=== PATIENT | female | born 1950 | race Caucasian/White ===

== ENCOUNTER 2022-03-14 09:51 | Inpatient (IN) | payer OTHER, MEDICAID ==
[2022-03-14] MEDS ORDERED: Melatonin 3 MG TAB PO PRN (18:10)
[2022-03-14] MEDS ORDERED: Ondansetron ODT 4 MG TAB PO PRN (18:10)
[2022-03-14] MEDS ORDERED: Acetaminophen 325 MG TAB PO PRN (18:10)
[2022-03-14] MEDS ORDERED: Bisacodyl 5 MG TAB PO PRN (18:13)
[2022-03-14] MEDS ORDERED: Dextrose 50% Abboject 50 ML SYRINGE SLOW IVP PRN (18:13)
[2022-03-14] MEDS ORDERED: Senokot S 8.6-50 MG TAB PO PRN (18:13)
[2022-03-14] MEDS ORDERED: Mometasone/Formoterol 200/5 60 PUFF INH SCH (18:30)
[2022-03-14] MEDS: Saccharomyces boulardii 250 MG CAP PO SCH (20:08)
[2022-03-14] MEDS: Gabapentin 300 MG CAP PO SCH (20:08)
[2022-03-14] MEDS: Colchicine 0.6 MG TAB PO SCH (20:09)
[2022-03-14] MEDS: Lantus 1000 UNITS/10 ML VIAL SC SCH (20:10)
[2022-03-14] MEDS: Famotidine 20 MG TAB PO SCH (20:10)
[2022-03-14] MEDS: Heparin 5,000 UNITS/ML VIAL SC SCH (20:10)
[2022-03-14] MEDS: Nystatin Powder 15 GM BOT TOP SCH (20:31)
[2022-03-15 06:22] LABS: ALT (SGPT) 40 U/L (8-55); AST (SGOT) 28 U/L (5-34); Albumin 3.1 g/dL (3.4-4.8); Alkaline Phosphatase 114 U/L (40-110); Anion Gap 17 mmol/L (10-20); BUN (Urea Nitrogen) 55 mg/dL (9.8-20.1); Bilirubin, Total 0.4 mg/dL (0.2-1.2); Calc. Creatinine Clearance 62 mL/min (70-130); Calcium 9.4 mg/dL (7.8-10.44); Carbon Dioxide 29 mmol/L (23-31); Chloride 100 mmol/L (98-107); Estimated GFR 37; Globulin 3.4 g/dL (2.4-3.5); Glucose 92 mg/dL (83-110); Potassium 4.8 mmol/L (3.5-5.1); Protein, Total 6.5 g/dL (5.8-8.1); Sodium 141 mmol/L (136-145)
[2022-03-15 06:41] LABS: #Basophils 0.1 thou/uL (0.0-0.2); #Eosinphils 0.2 thou/uL (0.0-0.7); #Lymphocytes 1.7 thou/uL (1.20-3.40); #Monocytes 0.5 thou/uL (0.11-0.59); #Neutrophils 8.3 thou/uL (1.40-6.50); %Eosinophils 2.1 % (0.0-10.0); %Lymphocytes 16.1 % (21.0-51.0); %Monocytes 4.2 % (0.0-10.0); %Neutrophils 76.7 % (42.0-75.0); Hemoglobin 9.5 g/dL (12.0-16.0); Mean Corpuscular HGB CONC 29.2 g/dL (32.0-36.0); Mean Corpuscular Volume 99.2 fL (78.0-98.0); Mean Platelet Volume 6.6 fL (7.4-10.4); Platelet Count 471 thou/uL (130-400); Red Blood Cell (RBC) Count 3.27 mill/uL (4.20-5.40); White Blood Cell (WBC) Count 10.8 thou/uL (4.8-10.8)
[2022-03-15] MEDS: Colchicine 0.6 MG TAB PO SCH ×2 (08:30→20:39)
[2022-03-15] MEDS: Clopidogrel Bisulfate 75 MG TAB PO SCH (08:36)
[2022-03-15] MEDS: Furosemide 20 MG TAB PO SCH (08:37)
[2022-03-15] MEDS: Gabapentin 300 MG CAP PO SCH ×2 (08:37→20:38)
[2022-03-15] MEDS: Empagliflozin 10 MG TAB PO SCH (08:37)
[2022-03-15] MEDS: Famotidine 20 MG TAB PO SCH ×2 (08:37→20:39)
[2022-03-15] MEDS: Heparin 5,000 UNITS/ML VIAL SC SCH ×3 (08:38→20:32)
[2022-03-15] MEDS: Lantus 1000 UNITS/10 ML VIAL SC SCH ×2 (08:39→20:31)
[2022-03-15] MEDS: Mometasone/Formoterol 200/5 60 PUFF INH SCH ×2 (08:40→20:35)
[2022-03-15] MEDS: Nystatin Powder 15 GM BOT TOP SCH ×2 (08:41→20:35)
[2022-03-15] MEDS: HumaLOG 300 UNITS/3 ML VIAL SC PRN ×2 (17:48→20:53)
[2022-03-15] MEDS: Saccharomyces boulardii 250 MG CAP PO SCH (20:38)
[2022-03-15] MEDS: traMADol HCl 50 MG TAB PO PRN (20:41)
[2022-03-16] MEDS: Colchicine 0.6 MG TAB PO SCH ×2 (08:20→20:46)
[2022-03-16] MEDS: Clopidogrel Bisulfate 75 MG TAB PO SCH (08:22)
[2022-03-16] MEDS: Famotidine 20 MG TAB PO SCH ×2 (08:22→20:46)
[2022-03-16] MEDS: Lisinopril 10 MG TAB PO SCH (08:22)
[2022-03-16] MEDS: Empagliflozin 10 MG TAB PO SCH (08:22)
[2022-03-16] MEDS: Furosemide 20 MG TAB PO SCH (08:22)
[2022-03-16] MEDS: Gabapentin 300 MG CAP PO SCH ×2 (08:23→20:47)
[2022-03-16] MEDS: Nystatin Powder 15 GM BOT TOP SCH ×2 (08:24→20:48)
[2022-03-16] MEDS: Mometasone/Formoterol 200/5 60 PUFF INH SCH ×2 (08:24→20:48)
[2022-03-16] MEDS: Heparin 5,000 UNITS/ML VIAL SC SCH ×3 (08:25→20:26)
[2022-03-16] MEDS: Lantus 1000 UNITS/10 ML VIAL SC SCH ×2 (08:26→20:48)
[2022-03-16] MEDS: traMADol HCl 50 MG TAB PO PRN ×2 (09:31→20:45)
[2022-03-16] MEDS: HumaLOG 300 UNITS/3 ML VIAL SC PRN (12:08)
[2022-03-16] MEDS ORDERED: Simethicone Chewable 80 MG TAB PO PRN (18:00)
[2022-03-16] MEDS: Saccharomyces boulardii 250 MG CAP PO SCH (20:46)
[2022-03-17] MEDS: Lisinopril 10 MG TAB PO SCH (09:50)
[2022-03-17] MEDS: Colchicine 0.6 MG TAB PO SCH ×2 (09:51→20:14)
[2022-03-17] MEDS: Famotidine 20 MG TAB PO SCH ×2 (09:51→20:14)
[2022-03-17] MEDS: Clopidogrel Bisulfate 75 MG TAB PO SCH (09:51)
[2022-03-17] MEDS: Furosemide 20 MG TAB PO SCH (09:52)
[2022-03-17] MEDS: Empagliflozin 10 MG TAB PO SCH (09:52)
[2022-03-17] MEDS: Lantus 1000 UNITS/10 ML VIAL SC SCH ×2 (09:53→20:16)
[2022-03-17] MEDS: Heparin 5,000 UNITS/ML VIAL SC SCH ×3 (09:53→20:09)
[2022-03-17] MEDS: Mometasone/Formoterol 200/5 60 PUFF INH SCH ×2 (09:54→20:16)
[2022-03-17] MEDS: Nystatin Powder 15 GM BOT TOP SCH ×2 (09:55→20:16)
[2022-03-17] MEDS: Gabapentin 300 MG CAP PO SCH ×2 (09:56→20:14)
[2022-03-17] MEDS: traMADol HCl 50 MG TAB PO PRN ×2 (10:02→20:13)
[2022-03-17] MEDS: HumaLOG 300 UNITS/3 ML VIAL SC PRN (12:36)
[2022-03-17] MEDS: Saccharomyces boulardii 250 MG CAP PO SCH (20:14)
[2022-03-17] MEDS: Proctozone-HC 30 GM TUBE PR PRN (20:18)
[2022-03-18] MEDS: traMADol HCl 50 MG TAB PO PRN ×3 (02:31→20:12)
[2022-03-18] MEDS: Empagliflozin 10 MG TAB PO SCH (09:42)
[2022-03-18] MEDS: Furosemide 20 MG TAB PO SCH (09:42)
[2022-03-18] MEDS: Famotidine 20 MG TAB PO SCH ×2 (09:42→20:17)
[2022-03-18] MEDS: Clopidogrel Bisulfate 75 MG TAB PO SCH (09:42)
[2022-03-18] MEDS: Lisinopril 10 MG TAB PO SCH (09:42)
[2022-03-18] MEDS: Colchicine 0.6 MG TAB PO SCH ×2 (09:43→20:17)
[2022-03-18] MEDS: Mometasone/Formoterol 200/5 60 PUFF INH SCH ×2 (09:46→20:16)
[2022-03-18] MEDS: Gabapentin 300 MG CAP PO SCH ×2 (09:46→20:17)
[2022-03-18] MEDS: Heparin 5,000 UNITS/ML VIAL SC SCH ×3 (09:46→20:08)
[2022-03-18] MEDS: Nystatin Powder 15 GM BOT TOP SCH ×2 (09:48→20:16)
[2022-03-18] MEDS: Lantus 1000 UNITS/10 ML VIAL SC SCH ×2 (09:49→20:15)
[2022-03-18] MEDS: Proctozone-HC 30 GM TUBE PR PRN (11:47)
[2022-03-18] MEDS: HumaLOG 300 UNITS/3 ML VIAL SC PRN ×2 (11:48→17:03)
[2022-03-18] MEDS: Saccharomyces boulardii 250 MG CAP PO SCH (20:17)
[2022-03-19] MEDS: Mometasone/Formoterol 200/5 60 PUFF INH SCH ×2 (07:47→20:05)
[2022-03-19] MEDS: Colchicine 0.6 MG TAB PO SCH ×2 (07:49→20:05)
[2022-03-19] MEDS: Furosemide 20 MG TAB PO SCH (07:49)
[2022-03-19] MEDS: Nystatin Powder 15 GM BOT TOP SCH ×2 (07:49→20:04)
[2022-03-19] MEDS: Famotidine 20 MG TAB PO SCH (07:50)
[2022-03-19] MEDS: Gabapentin 300 MG CAP PO SCH ×2 (07:50→20:06)
[2022-03-19] MEDS: Lisinopril 10 MG TAB PO SCH (07:52)
[2022-03-19] MEDS: Empagliflozin 10 MG TAB PO SCH (07:53)
[2022-03-19] MEDS: Heparin 5,000 UNITS/ML VIAL SC SCH ×3 (07:54→19:59)
[2022-03-19] MEDS: Lantus 1000 UNITS/10 ML VIAL SC SCH ×2 (07:54→20:03)
[2022-03-19] MEDS: Clopidogrel Bisulfate 75 MG TAB PO SCH (07:54)
[2022-03-19] MEDS: traMADol HCl 50 MG TAB PO PRN (08:05)
[2022-03-19] MEDS: Proctozone-HC 30 GM TUBE PR PRN (15:42)
[2022-03-19] MEDS: Saccharomyces boulardii 250 MG CAP PO SCH (20:05)
[2022-03-20 06:38] LABS: #Eosinphils 0.1 thou/uL (0.0-0.7); #Lymphocytes 1.5 thou/uL (1.20-3.40); #Monocytes 0.5 thou/uL (0.11-0.59); #Neutrophils 3.5 thou/uL (1.40-6.50); %Basophils 0.9 % (0.0-1.0); %Eosinophils 2.5 % (0.0-10.0); %Monocytes 7.9 % (0.0-10.0); %Neutrophils 62.8 % (42.0-75.0); Anion Gap 15 mmol/L (10-20); BUN (Urea Nitrogen) 46 mg/dL (9.8-20.1); Calc. Creatinine Clearance 62 mL/min (70-130); Calcium 9.6 mg/dL (7.8-10.44); Carbon Dioxide 28 mmol/L (23-31); Chloride 103 mmol/L (98-107); Estimated GFR 38; Glucose 60 mg/dL (83-110); Hemoglobin 8.7 g/dL (12.0-16.0); Mean Corpuscular HGB CONC 28.6 g/dL (32.0-36.0); Mean Corpuscular Hemoglobin 28.3 pg (27.0-31.0); Mean Corpuscular Volume 98.9 fL (78.0-98.0); Mean Platelet Volume 6.9 fL (7.4-10.4); Platelet Count 279 thou/uL (130-400); Potassium 4.2 mmol/L (3.5-5.1); RBC Distribution Width 15.4 % (11.5-14.5); Red Blood Cell (RBC) Count 3.08 mill/uL (4.20-5.40); Sodium 142 mmol/L (136-145); White Blood Cell (WBC) Count 5.6 thou/uL (4.8-10.8)
[2022-03-20] MEDS: Empagliflozin 10 MG TAB PO SCH (09:07)
[2022-03-20] MEDS: Lisinopril 10 MG TAB PO SCH (09:08)
[2022-03-20] MEDS: Furosemide 20 MG TAB PO SCH (09:08)
[2022-03-20] MEDS: Colchicine 0.6 MG TAB PO SCH ×2 (09:08→20:58)
[2022-03-20] MEDS: Famotidine 20 MG TAB PO SCH (09:08)
[2022-03-20] MEDS: Gabapentin 300 MG CAP PO SCH ×2 (09:09→21:00)
[2022-03-20] MEDS: Clopidogrel Bisulfate 75 MG TAB PO SCH (09:09)
[2022-03-20] MEDS: Mometasone/Formoterol 200/5 60 PUFF INH SCH ×2 (09:09→21:01)
[2022-03-20] MEDS: Nystatin Powder 15 GM BOT TOP SCH ×2 (09:09→21:03)
[2022-03-20] MEDS: Heparin 5,000 UNITS/ML VIAL SC SCH ×3 (09:09→20:56)
[2022-03-20] MEDS: traMADol HCl 50 MG TAB PO PRN (11:03)
[2022-03-20] MEDS: Proctozone-HC 30 GM TUBE PR PRN ×2 (11:43→18:18)
[2022-03-20] MEDS ORDERED: Lantus 1000 UNITS/10 ML VIAL SC SCH (12:00)
[2022-03-20] MEDS ORDERED: traMADol HCl 50 MG TAB PO PRN (17:05)
[2022-03-20] MEDS: HYDROcodone/Acetaminophen 5/325 mg Tablet PO PRN (17:37)
[2022-03-20] MEDS: Saccharomyces boulardii 250 MG CAP PO SCH (20:58)
[2022-03-20] MEDS: Lantus 1000 UNITS/10 ML VIAL SC SCH (21:02)
[2022-03-20] MEDS: Triamcinolone 0.1% Cream 15 GM TUBE TOP PRN (21:18)
[2022-03-21] MEDS: HYDROcodone/Acetaminophen 5/325 mg Tablet PO PRN ×2 (01:38→08:29)
[2022-03-21] MEDS: HumaLOG 300 UNITS/3 ML VIAL SC PRN ×2 (05:34→16:18)
[2022-03-21] MEDS: Gabapentin 300 MG CAP PO SCH ×2 (08:05→20:59)
[2022-03-21] MEDS: Clopidogrel Bisulfate 75 MG TAB PO SCH (08:07)
[2022-03-21] MEDS: Famotidine 20 MG TAB PO SCH (08:07)
[2022-03-21] MEDS: Furosemide 20 MG TAB PO SCH (08:07)
[2022-03-21] MEDS: Empagliflozin 10 MG TAB PO SCH (08:07)
[2022-03-21] MEDS: Colchicine 0.6 MG TAB PO SCH ×2 (08:08→20:58)
[2022-03-21] MEDS: Heparin 5,000 UNITS/ML VIAL SC SCH ×3 (08:08→20:59)
[2022-03-21] MEDS: Lisinopril 10 MG TAB PO SCH (08:08)
[2022-03-21] MEDS: Mometasone/Formoterol 200/5 60 PUFF INH SCH ×2 (08:17→20:56)
[2022-03-21] MEDS: Nystatin Powder 15 GM BOT TOP SCH ×2 (08:17→20:56)
[2022-03-21] MEDS: Lantus 1000 UNITS/10 ML VIAL SC SCH ×2 (08:19→21:00)
[2022-03-21] MEDS: Triamcinolone 0.1% Cream 15 GM TUBE TOP PRN (18:01)
[2022-03-21] MEDS: Saccharomyces boulardii 250 MG CAP PO SCH (20:57)
[2022-03-22] MEDS: HumaLOG 300 UNITS/3 ML VIAL SC PRN ×3 (05:46→16:31)
[2022-03-22] MEDS: HYDROcodone/Acetaminophen 5/325 mg Tablet PO PRN ×2 (07:40→20:34)
[2022-03-22] MEDS: Empagliflozin 10 MG TAB PO SCH (07:41)
[2022-03-22] MEDS: Colchicine 0.6 MG TAB PO SCH ×2 (07:42→20:35)
[2022-03-22] MEDS: Gabapentin 300 MG CAP PO SCH ×2 (07:42→20:35)
[2022-03-22] MEDS: Lisinopril 10 MG TAB PO SCH (07:43)
[2022-03-22] MEDS: Famotidine 20 MG TAB PO SCH (07:44)
[2022-03-22] MEDS: Clopidogrel Bisulfate 75 MG TAB PO SCH (07:44)
[2022-03-22] MEDS: Furosemide 20 MG TAB PO SCH (07:44)
[2022-03-22] MEDS: Triamcinolone 0.1% Cream 15 GM TUBE TOP PRN (07:44)
[2022-03-22] MEDS: Lantus 1000 UNITS/10 ML VIAL SC SCH ×2 (07:45→20:37)
[2022-03-22] MEDS: Nystatin Powder 15 GM BOT TOP SCH ×2 (07:45→20:37)
[2022-03-22] MEDS: Mometasone/Formoterol 200/5 60 PUFF INH SCH ×2 (07:45→20:36)
[2022-03-22] MEDS: Heparin 5,000 UNITS/ML VIAL SC SCH ×3 (08:07→20:38)
[2022-03-22] MEDS: Saccharomyces boulardii 250 MG CAP PO SCH (20:36)
[2022-03-23] MEDS: HYDROcodone/Acetaminophen 5/325 mg Tablet PO PRN ×2 (07:58→15:30)
[2022-03-23] MEDS: Mometasone/Formoterol 200/5 60 PUFF INH SCH ×2 (08:00→20:38)
[2022-03-23] MEDS: Nystatin Powder 15 GM BOT TOP SCH ×2 (08:01→20:43)
[2022-03-23] MEDS: Lisinopril 10 MG TAB PO SCH (08:02)
[2022-03-23] MEDS: Gabapentin 300 MG CAP PO SCH ×2 (08:02→20:39)
[2022-03-23] MEDS: Famotidine 20 MG TAB PO SCH (08:03)
[2022-03-23] MEDS: Colchicine 0.6 MG TAB PO SCH ×2 (08:03→20:39)
[2022-03-23] MEDS: Empagliflozin 10 MG TAB PO SCH (08:03)
[2022-03-23] MEDS: Furosemide 20 MG TAB PO SCH (08:03)
[2022-03-23] MEDS: Clopidogrel Bisulfate 75 MG TAB PO SCH (08:04)
[2022-03-23] MEDS: Heparin 5,000 UNITS/ML VIAL SC SCH ×3 (08:05→20:40)
[2022-03-23] MEDS: Lantus 1000 UNITS/10 ML VIAL SC SCH ×2 (08:05→20:43)
[2022-03-23] MEDS: Triamcinolone 0.1% Cream 15 GM TUBE TOP PRN (08:09)
[2022-03-23] MEDS: HumaLOG 300 UNITS/3 ML VIAL SC PRN (12:29)
[2022-03-23] MEDS: Saccharomyces boulardii 250 MG CAP PO SCH (20:39)
[2022-03-23] MEDS ORDERED: Hydrocortisone 2.5% Cream 30 GM TUBE TOP PRN ×2 (22:22→22:23)
[2022-03-24 06:19] LABS: Anion Gap 21 mmol/L (10-20); BUN (Urea Nitrogen) 39 mg/dL (9.8-20.1); Calc. Creatinine Clearance 65 mL/min (70-130); Calcium 9.3 mg/dL (7.8-10.44); Carbon Dioxide 23 mmol/L (23-31); Chloride 105 mmol/L (98-107); Estimated GFR 40; Glucose 120 mg/dL (83-110); Potassium 5.2 mmol/L (3.5-5.1); Sodium 144 mmol/L (136-145)
[2022-03-24] MEDS: Clopidogrel Bisulfate 75 MG TAB PO SCH (08:47)
[2022-03-24] MEDS: Empagliflozin 10 MG TAB PO SCH (08:47)
[2022-03-24] MEDS: Gabapentin 300 MG CAP PO SCH ×2 (08:47→20:39)
[2022-03-24] MEDS: Furosemide 20 MG TAB PO SCH (08:48)
[2022-03-24] MEDS: Famotidine 20 MG TAB PO SCH (08:48)
[2022-03-24] MEDS: Lisinopril 10 MG TAB PO SCH (08:49)
[2022-03-24] MEDS: Colchicine 0.6 MG TAB PO SCH ×2 (08:50→20:39)
[2022-03-24] MEDS: Nystatin Powder 15 GM BOT TOP SCH ×2 (08:51→20:43)
[2022-03-24] MEDS: Heparin 5,000 UNITS/ML VIAL SC SCH ×3 (08:52→20:41)
[2022-03-24] MEDS: Lantus 1000 UNITS/10 ML VIAL SC SCH ×2 (09:15→20:41)
[2022-03-24] MEDS: Mometasone/Formoterol 200/5 60 PUFF INH SCH ×2 (09:15→20:42)
[2022-03-24] MEDS: HumaLOG 300 UNITS/3 ML VIAL SC PRN ×2 (11:48→21:13)
[2022-03-24 16:12] LABS: Anion Gap 16 mmol/L (10-20); BUN (Urea Nitrogen) 39 mg/dL (9.8-20.1); Calc. Creatinine Clearance 60 mL/min (70-130); Calcium 9.3 mg/dL (7.8-10.44); Carbon Dioxide 27 mmol/L (23-31); Chloride 102 mmol/L (98-107); Estimated GFR 36; Glucose 148 mg/dL (83-110); Potassium 4.3 mmol/L (3.5-5.1); Sodium 141 mmol/L (136-145)
[2022-03-24] MEDS: Saccharomyces boulardii 250 MG CAP PO SCH (20:39)
[2022-03-25 05:30] VITALS: BMI 48.6
[2022-03-25] MEDS: Colchicine 0.6 MG TAB PO SCH ×2 (08:07→20:51)
[2022-03-25] MEDS: Lisinopril 10 MG TAB PO SCH (08:08)
[2022-03-25] MEDS: Furosemide 20 MG TAB PO SCH (08:08)
[2022-03-25] MEDS: Empagliflozin 10 MG TAB PO SCH (08:08)
[2022-03-25] MEDS: Famotidine 20 MG TAB PO SCH (08:08)
[2022-03-25] MEDS: Gabapentin 300 MG CAP PO SCH ×2 (08:08→20:51)
[2022-03-25] MEDS: Clopidogrel Bisulfate 75 MG TAB PO SCH (08:08)
[2022-03-25] MEDS: Mometasone/Formoterol 200/5 60 PUFF INH SCH ×2 (08:09→20:53)
[2022-03-25] MEDS: Lantus 1000 UNITS/10 ML VIAL SC SCH ×2 (08:09→20:52)
[2022-03-25] MEDS: Heparin 5,000 UNITS/ML VIAL SC SCH ×3 (08:09→20:52)
[2022-03-25] MEDS: Nystatin Powder 15 GM BOT TOP SCH ×2 (08:10→20:53)
[2022-03-25] MEDS: HumaLOG 300 UNITS/3 ML VIAL SC PRN ×3 (11:55→20:54)
[2022-03-25] MEDS: Saccharomyces boulardii 250 MG CAP PO SCH (20:51)
[2022-03-26] MEDS: Heparin 5,000 UNITS/ML VIAL SC SCH ×3 (08:29→21:07)
[2022-03-26] MEDS: Colchicine 0.6 MG TAB PO SCH ×2 (08:29→21:06)
[2022-03-26] MEDS: Famotidine 20 MG TAB PO SCH (08:31)
[2022-03-26] MEDS: Furosemide 20 MG TAB PO SCH (08:31)
[2022-03-26] MEDS: Lisinopril 10 MG TAB PO SCH (08:31)
[2022-03-26] MEDS: Gabapentin 300 MG CAP PO SCH ×2 (08:31→21:06)
[2022-03-26] MEDS: Clopidogrel Bisulfate 75 MG TAB PO SCH (08:31)
[2022-03-26] MEDS: Mometasone/Formoterol 200/5 60 PUFF INH SCH ×2 (08:32→21:08)
[2022-03-26] MEDS: Nystatin Powder 15 GM BOT TOP SCH ×2 (08:33→21:06)
[2022-03-26] MEDS: Lantus 1000 UNITS/10 ML VIAL SC SCH ×2 (08:33→21:07)
[2022-03-26] MEDS: Empagliflozin 10 MG TAB PO SCH (08:34)
[2022-03-26] MEDS: HYDROcodone/Acetaminophen 5/325 mg Tablet PO PRN (08:42)
[2022-03-26] MEDS: Saccharomyces boulardii 250 MG CAP PO SCH (21:06)
[2022-03-27] MEDS: Mometasone/Formoterol 200/5 60 PUFF INH SCH ×2 (09:37→21:20)
[2022-03-27] MEDS: Gabapentin 300 MG CAP PO SCH ×2 (09:38→21:19)
[2022-03-27] MEDS: Empagliflozin 10 MG TAB PO SCH (09:38)
[2022-03-27] MEDS: Lisinopril 10 MG TAB PO SCH (09:39)
[2022-03-27] MEDS: Clopidogrel Bisulfate 75 MG TAB PO SCH (09:39)
[2022-03-27] MEDS: Heparin 5,000 UNITS/ML VIAL SC SCH ×3 (09:39→21:20)
[2022-03-27] MEDS: Famotidine 20 MG TAB PO SCH (09:39)
[2022-03-27] MEDS: Furosemide 20 MG TAB PO SCH (09:39)
[2022-03-27] MEDS: Nystatin Powder 15 GM BOT TOP SCH ×2 (09:39→21:21)
[2022-03-27] MEDS: Colchicine 0.6 MG TAB PO SCH ×2 (09:40→21:18)
[2022-03-27] MEDS: Lantus 1000 UNITS/10 ML VIAL SC SCH ×2 (09:43→21:20)
[2022-03-27] MEDS: HYDROcodone/Acetaminophen 5/325 mg Tablet PO PRN (14:23)
[2022-03-27] MEDS: HumaLOG 300 UNITS/3 ML VIAL SC PRN (17:21)
[2022-03-27] MEDS: Saccharomyces boulardii 250 MG CAP PO SCH (21:19)
[2022-03-28 07:28] LABS: #Eosinphils 0.2 thou/uL (0.0-0.7); #Lymphocytes 1.2 thou/uL (1.20-3.40); #Monocytes 0.4 thou/uL (0.11-0.59); #Neutrophils 2.7 thou/uL (1.40-6.50); %Basophils 0.7 % (0.0-1.0); %Eosinophils 4.2 % (0.0-10.0); %Lymphocytes 26.3 % (21.0-51.0); %Monocytes 8.2 % (0.0-10.0); %Neutrophils 60.6 % (42.0-75.0); Anion Gap 15 mmol/L (10-20); BUN (Urea Nitrogen) 37 mg/dL (9.8-20.1); Calc. Creatinine Clearance 67 mL/min (70-130); Calcium 9.3 mg/dL (7.8-10.44); Carbon Dioxide 27 mmol/L (23-31); Chloride 107 mmol/L (98-107); Estimated GFR 41; Glucose 129 mg/dL (83-110); Hemoglobin 9.1 g/dL (12.0-16.0); Mean Corpuscular HGB CONC 28.5 g/dL (32.0-36.0); Mean Corpuscular Hemoglobin 28.6 pg (27.0-31.0); Mean Platelet Volume 7.5 fL (7.4-10.4); Platelet Count 134 thou/uL (130-400); Potassium 3.9 mmol/L (3.5-5.1); Red Blood Cell (RBC) Count 3.19 mill/uL (4.20-5.40); Sodium 145 mmol/L (136-145); White Blood Cell (WBC) Count 4.4 thou/uL (4.8-10.8)
[2022-03-28] MEDS: HYDROcodone/Acetaminophen 5/325 mg Tablet PO PRN ×3 (08:47→21:21)
[2022-03-28] MEDS: Furosemide 20 MG TAB PO SCH (08:47)
[2022-03-28] MEDS: Empagliflozin 10 MG TAB PO SCH (08:47)
[2022-03-28] MEDS: Lisinopril 10 MG TAB PO SCH (08:47)
[2022-03-28] MEDS: Gabapentin 300 MG CAP PO SCH ×2 (08:48→21:23)
[2022-03-28] MEDS: Heparin 5,000 UNITS/ML VIAL SC SCH ×3 (08:48→21:26)
[2022-03-28] MEDS: Famotidine 20 MG TAB PO SCH (08:48)
[2022-03-28] MEDS: Clopidogrel Bisulfate 75 MG TAB PO SCH (08:48)
[2022-03-28] MEDS: Colchicine 0.6 MG TAB PO SCH ×2 (08:49→21:23)
[2022-03-28] MEDS: Mometasone/Formoterol 200/5 60 PUFF INH SCH ×2 (08:49→21:19)
[2022-03-28] MEDS: Lantus 1000 UNITS/10 ML VIAL SC SCH ×2 (08:50→21:20)
[2022-03-28] MEDS: Nystatin Powder 15 GM BOT TOP SCH ×2 (08:53→21:24)
[2022-03-28] MEDS: HumaLOG 300 UNITS/3 ML VIAL SC PRN (17:08)
[2022-03-28] MEDS: Saccharomyces boulardii 250 MG CAP PO SCH (21:22)
[2022-03-29] MEDS: Mometasone/Formoterol 200/5 60 PUFF INH SCH ×2 (08:25→20:25)
[2022-03-29] MEDS: Colchicine 0.6 MG TAB PO SCH ×2 (08:29→20:27)
[2022-03-29] MEDS: Empagliflozin 10 MG TAB PO SCH (08:30)
[2022-03-29] MEDS: Clopidogrel Bisulfate 75 MG TAB PO SCH (08:31)
[2022-03-29] MEDS: Lisinopril 10 MG TAB PO SCH (08:31)
[2022-03-29] MEDS: Gabapentin 300 MG CAP PO SCH ×2 (08:32→20:27)
[2022-03-29] MEDS: Furosemide 20 MG TAB PO SCH (08:32)
[2022-03-29] MEDS: Famotidine 20 MG TAB PO SCH (08:32)
[2022-03-29] MEDS: HYDROcodone/Acetaminophen 5/325 mg Tablet PO PRN ×2 (08:34→20:26)
[2022-03-29] MEDS: Heparin 5,000 UNITS/ML VIAL SC SCH ×3 (08:37→20:19)
[2022-03-29] MEDS: Lantus 1000 UNITS/10 ML VIAL SC SCH ×2 (08:40→20:22)
[2022-03-29] MEDS: Nystatin Powder 15 GM BOT TOP SCH ×2 (08:42→20:26)
[2022-03-29] MEDS: Saccharomyces boulardii 250 MG CAP PO SCH (20:27)
[2022-03-30 07:59] VITALS: BP 155/67; TEMP 97.6
[2022-03-30] MEDS: Colchicine 0.6 MG TAB PO SCH (08:00)
[2022-03-30] MEDS: Famotidine 20 MG TAB PO SCH (08:01)
[2022-03-30] MEDS: Gabapentin 300 MG CAP PO SCH (08:01)
[2022-03-30] MEDS: Lisinopril 10 MG TAB PO SCH (08:01)
[2022-03-30] MEDS: HYDROcodone/Acetaminophen 5/325 mg Tablet PO PRN (08:02)
[2022-03-30] MEDS: Furosemide 20 MG TAB PO SCH (08:02)
[2022-03-30] MEDS: Clopidogrel Bisulfate 75 MG TAB PO SCH (08:02)
[2022-03-30] MEDS: Empagliflozin 10 MG TAB PO SCH (08:02)
[2022-03-30] MEDS: Lantus 1000 UNITS/10 ML VIAL SC SCH (08:03)
[2022-03-30] MEDS: Mometasone/Formoterol 200/5 60 PUFF INH SCH (08:04)
[2022-03-30] MEDS: Heparin 5,000 UNITS/ML VIAL SC SCH (08:04)
[2022-03-30] MEDS: Nystatin Powder 15 GM BOT TOP SCH ×2 (08:05→10:30)
== END 2022-03-30 13:30 | disposition home health service (06) | DRG 948 ==
LOC: NAV ACUTE 13:25
PROVIDERS: ADMIT Family Medicine; ATTEND Family Medicine
DX: R53.81 Other malaise (principal); J96.11 Chronic respiratory failure with hypoxia; I50.32 Chronic diastolic (congestive) heart failure; I13.0 Hypertensive heart and chronic kidney disease with heart failure and stage 1 through stage 4 chronic kidney disease, or unspecified chronic kidney disease; J44.9 Chronic obstructive pulmonary disease, unspecified; G47.33 Obstructive sleep apnea (adult) (pediatric); E11.9 Type 2 diabetes mellitus without complications; M10.9 Gout, unspecified; B37.2 Candidiasis of skin and nail; S40.022A Contusion of left upper arm, initial encounter; G89.29 Other chronic pain; L89.152 Pressure ulcer of sacral region, stage 2; F32.A Depression, unspecified; N18.32 Chronic kidney disease, stage 3b; E87.5 Hyperkalemia; L30.9 Dermatitis, unspecified; I25.10 Atherosclerotic heart disease of native coronary artery without angina pectoris; Z99.81 Dependence on supplemental oxygen; Z90.710 Acquired absence of both cervix and uterus; Z95.5 Presence of coronary angioplasty implant and graft; Z88.6 Allergy status to analgesic agent; Z86.16 Personal history of COVID-19; I25.2 Old myocardial infarction; Z90.89 Acquired absence of other organs; Z80.0 Family history of malignant neoplasm of digestive organs; Z82.49 Family history of ischemic heart disease and other diseases of the circulatory system; Z87.891 Personal history of nicotine dependence; Z79.899 Other long term (current) drug therapy; Z79.01 Long term (current) use of anticoagulants; Z79.4 Long term (current) use of insulin
CPT/HCPCS: 36416; 80048; 80053; 85025; 94664; 97602; 36415-59; J1644; J1815